=== PATIENT | male | born 1985 | race Caucasian/White ===

== ENCOUNTER 2024-01-07 11:08 | Emergency (ER) | payer SELFPAY ==
[~2024-01-07] VITALS: Ht 157.5 cm; Wt 47.3 kg
[2024-01-07 11:31] VITALS: BP 139/75; TEMP 97.6; O2SAT 100
[2024-01-07] MEDS ORDERED: DOXY-323 PO (14:41)
== END 2024-01-07 14:53 | disposition home or self-care (01) ==
LOC: M ED 11:08
DX: L73.9 Follicular disorder, unspecified (principal); F17.200 Nicotine dependence, unspecified, uncomplicated